=== PATIENT | male | born 1985 | race Caucasian/White ===

== ENCOUNTER 2018-06-18 09:58 | Emergency (ER) | payer OTHER ==
[2018-06-18] MEDS ORDERED: KETOROLAC 30 MG/ML 1 ML VIAL IM STA (09:59)
[2018-06-18] MEDS ORDERED: DIPH,PERTUS(ACELL)TETVAC-LF 0.5 ML VIAL IM ONE (09:59)
[2018-06-18 10:13] VITALS: RESP 16
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
[2018-06-18] MEDS ORDERED: MORPHINE SULFATE 4 MG/ML SYRINGE IVP STA (10:44)
--- NOTE | 2018-06-18 11:04 | XR ---
EXAMINATION TYPE: XR knee complete bilateral , 6 VIEWS DATE OF EXAM ORDERED: 06/18/2018 HISTORY: Pain. COMPARISON: None. FINDINGS: The joint spaces are well-maintained. No fracture, dislocation or joint effusion is seen. IMPRESSION: NO ACUTE OSSEOUS LESION.
--- NOTE | 2018-06-18 11:05 | XR ---
EXAMINATION TYPE: XR tibia fibula bilateral , 4 VIEWS DATE OF EXAM ORDERED: 06/18/2018 HISTORY: Pain. COMPARISON: None. FINDINGS: No fracture, dislocation or other acute osseous lesion is seen. IMPRESSION: NO ACUTE OSSEOUS LESION.
--- NOTE | 2018-06-18 11:06 | XR ---
EXAMINATION TYPE: XR foot complete LT , 3 VIEWS DATE OF EXAM ORDERED: 06/18/2018 HISTORY: Pain. COMPARISON: None. FINDINGS: No fracture, dislocation or ankle joint effusion is seen. There is a small plantar calcane al spur. IMPRESSION: NO ACUTE OSSEOUS LESION.
[2018-06-18] MEDS ORDERED: HYDROcodone/APAP 5-325MG 1 EACH TAB PO STA (12:05)
[2018-06-18 12:33] VITALS: BP 138/70; PULSE 78; TEMP 197.9
== END 2018-06-18 12:32 | disposition home or self-care (01) ==
LOC: EC 09:58
DX: S90.32XA Contusion of left foot, initial encounter (principal); S80.01XA Contusion of right knee, initial encounter; M43.26 Fusion of spine, lumbar region; Z23 Encounter for immunization; Z88.0 Allergy status to penicillin; Z98.890 Other specified postprocedural states; Z98.1 Arthrodesis status; W20.8XXA Other cause of strike by thrown, projected or falling object, initial encounter
CPT/HCPCS: 99284 ×2; 96374 ×2; 96372 ×2; 90471 ×2; 73562; 73590; 73630; 90715; J2270; J1885

== ENCOUNTER 2019-08-08 13:00 | Emergency (ER) | payer OTHER ==
[2019-08-08 14:41] LABS: Basophils % (A) 1 %; Eosinophils # (A) 0.3 k/uL (0-0.7); Eosinophils % (A) 3 %; HCT 46.4 % (39.0-53.0); Lymphocytes # (A) 2.1 k/uL (1.0-4.8); Lymphocytes % (A) 28 %; MCH 29.1 pg (25.0-35.0); MCHC 34.4 g/dL (31.0-37.0); MCV 84.7 fL (80.0-100.0); Mean Platelet Volume 7.9; Monocytes # (A) 0.5 k/uL (0-1.0); Monocytes % (A) 7 %; Neutrophils # (A) 4.6 k/uL (1.3-7.7); Neutrophils % (A) 60 %; Platelet Count 226 k/uL (150-450); RBC 5.48 m/uL (4.30-5.90); RDW 11.8 % (11.5-15.5); WBC 7.7 k/uL (3.8-10.6)
[2019-08-08 14:48] LABS: ALT 19 U/L (4-49); AST 24 U/L (17-59); African American GFR (CKD) >90 (>60 ml/min/1.73 sqM); Albumin 4.3 g/dL (3.5-5.0); Alkaline Phosphatase 81 U/L (38-126); Anion Gap 8 mmol/L; Blood Urea Nitrogen 20 mg/dL (9-20); Calcium 9.6 mg/dL (8.4-10.2); Carbon Dioxide 26 mmol/L (22-30); Chloride 106 mmol/L (98-107); Glucose 92 mg/dL (74-99); Non-African American GFR(CKD) >90 (>60 ml/min/1.73 sqM); Potassium 4.7 mmol/L (3.5-5.1); Sodium 140 mmol/L (137-145); Total Bilirubin 0.6 mg/dL (0.2-1.3); Total Protein 7.2 g/dL (6.3-8.2)
[2019-08-08 14:56] LABS: VBG PH 7.38 (7.31-7.41)
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
[2019-08-08 16:38] VITALS: BP 107/64; PULSE 72; RESP 18; TEMP 98.1
== END 2019-08-08 16:38 | disposition home or self-care (01) ==
LOC: EC 13:00
DX: T58.8X1A Toxic effect of carbon monoxide from other source, accidental (unintentional), initial encounter (principal); Z88.0 Allergy status to penicillin; Y99.0 Civilian activity done for income or pay
CPT/HCPCS: 36415; 80053; 82375; 82803; 83605; 84484; 85025; 93005; 99283

== ENCOUNTER 2019-10-28 00:51 | Emergency (ER) | payer OTHER ==
[2019-10-28] MEDS ORDERED: MORPHINE SULFATE 2 MG/ML SYRINGE IVP STA (01:42)
[2019-10-28] MEDS ORDERED: ONDANSETRON 4 MG/2 ML VIAL IVP STA (01:42)
[2019-10-28] MEDS ORDERED: SODIUM CHLORIDE 0.9% 1,000 ML IV ONE (01:42)
--- NOTE | 2019-10-28 03:16 | CT ---
EXAMINATION TYPE: CT brain cspine wo con DATE OF EXAM: 10/28/2019 COMPARISON: None HISTORY: ETOH Fall CT DLP: 1899.5 mGycm Automated exposure control for dose reduction was used. Headache. Neck pain. Multiple axial sections were obtained of the brain without contrast. Multiple axial sections were obt ained from the skull base to T1 vertebra without contrast. FINDINGS: Ventricles have normal size. There is no mass effect nor midline shift. There is no sign of intracran ial hemorrhage. Calvarium is intact. Cervical vertebra have normal alignment. Posterior elements are intact. Facet joints are intact. The skull base is intact. IMPRESSION: Negative CT scan of the brain. Negative CT scan of the cervical spine. No fracture.
[2019-10-28] MEDS ORDERED: KETOROLAC 30 MG/ML 1 ML VIAL IM STA (03:27)
[2019-10-28] MEDS ORDERED: ACETAMINOPHEN TAB 500 MG TAB PO STA (03:27)
[2019-10-28] MEDS ORDERED: KETOROLAC 30 MG/ML 1 ML VIAL IVP STA (03:34)
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
[2019-10-28 04:00] VITALS: BP 120/74; PULSE 70; RESP 18; TEMP 98
== END 2019-10-28 04:00 | disposition home or self-care (01) ==
LOC: EC 00:51
DX: S06.0X1A Concussion with loss of consciousness of 30 minutes or less, initial encounter (principal); F10.129 Alcohol abuse with intoxication, unspecified; Z88.0 Allergy status to penicillin; W22.01XA Walked into wall, initial encounter; Y93.89 Activity, other specified; Y92.009 Unspecified place in unspecified non-institutional (private) residence as the place of occurrence of the external cause
CPT/HCPCS: 70450; 72125; 96361; 96374; 96375; 99284

== ENCOUNTER 2022-07-17 05:55 | Emergency (ER) | payer BC, OTHER ==
--- NOTE | 2022-07-17 06:14 | ED ---
Neck Injury/Pain HPI - General Chief Complaint: Neck Pain/Injury Stated Complaint: neck pain, fall Time Seen by Provider: 07/17/22 06:01 Source: patient, family, RN notes reviewed Mode of arrival: ambulatory Limitations: no limitations - History of Present Illness Initial Comments: This is a 37-year-old male who presents to the emergency department for neck pain. States that he rolled out of bed and hit his head on the dresser, and when he fell his neck was bent and he was on his right side. Currently having pain to the neck with radiation down both arms. He did have a cervical fusion 2 years ago, which he states is his largest concern. He had 800 mg of ibuprofen prior to arrival, which he states offered little to no benefit, however he decli barry any other pain medication at this time. Also complains of pain to the right side of the lower back with radiation down the right leg, which also occurred after the fall. Also reports a history of lumbar fusions. Denies any saddle anesthesia or loss of bowel/bladder control. His put one of his old c- collars on prior to arrival. Denies any fevers, chills, sore throat, cough, dyspnea, chest pain, palpitations, abdominal pain, nausea, vomiting, diarrhea, or headaches. MD Complaint: neck pain, neck injury Place: home Context: fall Treatments Prior to Arrival: Ibuprofen, cervical collar - Related Data Previous Rx's Medication Instructions Recorded Ibuprofen [Motrin] 600 mg PO Q8HR PRN #24 tab 06/18/18 Cyclobenzaprine [Flexeril] 5 mg PO TID PRN #20 tablet 07/17/22 Ibuprofen 800 mg PO Q8H PRN #20 tab 07/17/22 Lidocaine 5% Patch [Lidoderm 5% 1 patch TOPICAL DAILY PRN #30 patch 07/17/22 Patch] Allergies Allergy/AdvReac Type Severity Reaction Status Date / Time Penicillins Allergy Unknown Verified 07/17/22 05:57 Review of Systems ROS Statement: Those systems with pertinent positive or pertinent negative responses have been documented in the HPI. ROS Other: All systems not noted in ROS Statement are negative. Past Medical History Additional Past Medical History / Comment(s): migraines History of Any Multi-Drug Resistant Organisms: None Reported Past Surgical History: Back Surgery, Orthopedic Surgery, Tonsillectomy Additional Past Surgical History / Comment(s): L4, L5, S1 fusion, oral surgery, rt knee surgery Past Psychological History: No Psychological Hx Reported Smoking Status: Never smoker Past Alcohol Use History: Occasional Past Drug Use History: None Reported General Exam Limitations: no limitations General appearance: alert, in no apparent distress Head exam: Present: atraumatic, normocephalic, normal inspection Eye exam: Present: normal appearance, PERRL, EOMI. Absent: scleral icterus, conjunctival injection, periorbital swelling Neck exam: Present: normal inspection. Absent: tenderness, meningismus, full ROM (secondary to pain) Respiratory exam: Present: normal lung sounds bilaterally. Absent: respiratory distress, wheezes, rales, rhonchi, stridor Cardiovascular Exam: Present: regular rate, normal rhythm, normal heart sounds. Absent: systolic murmur, diastolic murmur, rubs, gallop, clicks Back exam: Present: normal inspection, tenderness (The right side of the lumbar spine at around L3 to L4). Absent: full ROM (secondary to pain) Neurological exam: Present: alert, oriented X3, CN II-XII intact Psychiatric exam: Present: normal affect, normal mood Skin exam: Present: warm, dry, intact, normal color. Absent: rash Course Vital Signs 07/17/22 07/17/22 05:58 06:25 Temperature 97.8 F 98.6 F Pulse Rate 75 80 Respiratory 18 16 Rate Blood Pressure 120/78 117/77 O2 Sat by Pulse 96 99 Oximetry Medical Decision Making - Medical Decision Making This is a 37-year-old male who presents to the emergency department for neck pain. Computed tomography scan of the cervical spine and x-ray of the lumbar spine were obtained. On his computed tomography scan of the cervical spine, I do identify his prior cervical fusions without evidence of acute fractures. On the x-ray of the lumbar spine I can identify his prior lumbar fusions and m ultilevel degenerative changes, however I identify no new acute fractures. Prescription for ibuprofen and Flexeril were provided. Advised to alternate with ibuprofen and Tylenol for pain relief. Reminded him that the Flexeril can be sedating and he should avoid driving or operating machinery when taking this. He was also given a prescription for lidocaine patches. Advise he alternate with ice and heat to help with the swelling and inflammation. He will follow up with his primary care provider this week to reevaluate his symptoms. Return precautions reviewed in depth, the patient is instructed to return to the emergency department with any new, worsening, or concerning symptoms, especially saddle anesthesia or loss or bowel/bladder control. Patient verbalized unders tanding. This case was discussed in detail with the attending ED physician. Presentation, findings, and treatment plan discussed in detail as well. - Radiology Data Radiology results: report reviewed, image reviewed Disposition Clinical Impression: Neck pain, Lower back pain, Fall Disposition: HOME SELF-CARE Instructions (If sedation given, give patient instructions): Cervical Sprain (ED), Back Pain (ED), Neck Pain (ED) Additional Instructions: Return to the emergency department with any new, worsening, or concerning symptoms. Alternate with ibuprofen and Tylenol as needed for pain relief. You can take the Flexeril as 1-2 tablets up to 3 times daily, be aware that this can be sedating and you should avoid driving or operating machinery when taking this. You were given starter packs for both ibuprofen and Flexeril in the event you cannot get to the pharmacy right away. You can also alternate with ice and heat to help with the pain and reduce inflammation. You can apply the lidocaine patches to both the neck and lower back once daily for additional relief. Follow up with your primary care provider in 1-2 days. Prescriptions: Cyclobenzaprine [Flexeril] 5 mg PO TID PRN #20 tablet PRN Reason: Pain Ibuprofen 800 mg PO Q8H PRN #20 tab PRN Reason: Pain Lidocaine 5% Patch [Lidoderm 5% Patch] 1 patch TOPICAL DAILY PRN #30 patch PRN Reason: Pain Is patient prescribed a controlled substance at d/c from ED?: No Referrals: Oscar Fatima MD [Primary Care Provider] - 1-2 days
[2022-07-17 06:27] VITALS: TEMP 98.6
--- NOTE | 2022-07-17 07:08 | CT ---
EXAMINATION TYPE: CT cervical spine wo con DATE OF EXAM: 07/17/2022 COMPARISON: None HISTORY: neck pain, fell out of bed. CT DLP: 948 mGycm Automated exposure control for dose reduction was used. TECHNIQUE: CT scan of the cervical spine is obtained without contrast, axial images are obtained, sa gittal and coronal reformatted images are also reviewed. FINDINGS: There is anterior and interdisc fusion at the C6-7 level. The craniovertebral junction relationships and prevertebral soft tissues are normal. The cervical ali gnment is normal there is minimal degenerative disc disease from C2 through C6. The cervical vertebral segments are normal in height. There is no fracture. The bony cervical canal and neuroforamina are widely patent. The facet joints and uncovertebral joints are intact. Paraspinal soft tissues are unremarkable. IMPRESSION: 1. Postsurgical changes at C6-7 as described. 2. No evidence of acute trauma to the cervical spine.
--- NOTE | 2022-07-17 07:10 | XR ---
Lumbar spine. HISTORY: Pain following fall. COMPARISON: None. TECHNIQUE: 3 views lumbar spine were obtained. FINDINGS: There are postsurgical changes of posterior metallic fusion from L3 through L5. There is intradiscal fusion at the L3-4 level or gas the lumbar vertebral segments are normal in height and alignment and there is no fracture or subluxation. The sacrum and SI joints appear normal. The disc spaces well-maintained. IMPRESSION: 1. Postsurgical changes from L3 through L5. 2. No evidence of acute trauma.
[2022-07-17] MEDS ORDERED: IBUPROFEN 600 MG STARTER PACK 4 TAB BTL PO STA (07:21)
[2022-07-17] MEDS ORDERED: CYCLOBENZAPRINE 10MG STARTER 3 TAB BTL PO STA (07:21)
[2022-07-17 07:38] VITALS: BP 124/76; PULSE 78; RESP 18
== END 2022-07-17 07:36 | disposition home or self-care (01) ==
LOC: EC 05:55
DX: M54.2 Cervicalgia (principal); M54.50 Low back pain, unspecified; Z88.0 Allergy status to penicillin; W18.09XA Striking against other object with subsequent fall, initial encounter
CPT/HCPCS: 72100; 72125; 99284

== ENCOUNTER 2023-08-29 10:13 | Emergency (ER) | payer BC ==
[2023-08-29] MEDS ORDERED: MORPHINE SULFATE 4 MG/ML SYRINGE IVP STA (10:36)
[2023-08-29] MEDS ORDERED: diphenhydrAMINE 50 MG/ML 1 ML VIAL IVP STA (10:36)
[2023-08-29] MEDS ORDERED: METOCLOPRAMIDE 5 MG/ML 2 ML VIAL IVP STA (10:36)
--- NOTE | 2023-08-29 10:43 | ED ---
General Adult HPI - General Chief complaint: Head Injury Stated complaint: headache-head injury Time Seen by Provider: 08/29/23 10:27 Source: patient, RN notes reviewed, old records reviewed Mode of arrival: ambulatory Limitations: no limitations - History of Present Illness Initial comments: Patient is a 38-year-old male who presents emergency Department complaining of headache following a head injury one week ago. Patient has a history of concussions. Has been dealing with worsening headaches over the last couple days after hitting his head on a chicken coop one week ago. States he hit the top of his head on a chicken coop. Did not lose consciousness. Is not on blood thinners. However since that time has been having his intermittent migraines that physical squeezing sensation over his head as well as intermittent nausea. Sensitivity lights and sounds. States has been worse over the last few days and therefore is concerned as he has had concussions the past but usually they resolve by this time. Presents for further evaluation. His no other acute complaints or injuries didn't complaining of some cervical spine pain. Does have a history of cervical spine fusion per patient. No focal pain. Just generalized pain. - Related Data Home Medications Medication Instructions Recorded Confirmed Ibuprofen [Advil] 800 mg PO Q8HR PRN 08/29/23 08/29/23 Previous Rx's Medication Instructions Recorded Cyclobenzaprine [Flexeril] 5 mg PO BID PRN 5 Days #10 tablet 08/29/23 Allergies Allergy/AdvReac Type Severity Reaction Status Date / Time Penicillins Allergy Rash/Hives Verified 08/29/23 11:40 prednisone AdvReac heart Verified 08/29/23 11:40 racing/cold sweats Review of Systems ROS Statement: Those systems with pertinent positive or pertinent negative responses have been documented in the HPI. Review of Systems: CONST: Denies fever EYES: Denies blurry vision ENT: Denies nasal congestion C/V: Denies Chest pain RESP: Denies shortness of breath GI: Denies abdominal pain : Denies dysuria SKIN: Denies rash. MSK: Denies joint pain. NEURO: Endorses headache ROS Other: All systems not noted in ROS Statement are negative. Past Medical History Additional Past Medical History / Comment(s): migraines, concussions. History of Any Multi-Drug Resistant Organisms: None Reported Past Surgical History: Back Surgery, Orthopedic Surgery, Tonsillectomy Additional Past Surgical History / Comment(s): L4, L5, S1 fusion, oral surgery, rt knee surgery Past Psychological History: No Psychological Hx Reported Smoking Status: Never smoker Past Alcohol Use History: Occasional Past Drug Use History: None Reported General Exam - General Exam Comments Initial Comments: General: Appears in mild distress secondary to headache. HEAD: Normal with no signs of head trauma. Negative devine sign. Negative raccoon eyes. EYES: PERRLA, EOMI, conjunctiva normal, no discharge. Pupils are 3 mm equal bilaterally. ENT: Hearing grossly intact, normal oropharynx. RESPIRATORY: Clear breath sounds bilaterally. No wheezes, rales, or rhonchi. C/V: Regular rate and rhythm. S1 and S2 auscultated, no edema, peripheral pulses 2+ and intact throughout ABD: Abd is soft, nontender, nondistended EXT: Normal range of motion, no obvious deformity SKIN: No rashes or lesions observed on exposed skin. NEURO: Alert and oriented x 4. Cranial nerves II-XII intact. No focal sensory or strength deficits. Able to ambulate without issues. GCS of 15. NIH is 0. Normal cerebellar function as evident by normal finger to nose testing. Limitations: no limitations Course Vital Signs 08/29/23 08/29/23 08/29/23 10:20 10:24 12:15 Temperature 98.9 F Pulse Rate 78 75 70 Respiratory 16 16 20 Rate Blood Pressure 147/84 148/68 111/76 O2 Sat by Pulse 96 98 98 Oximetry 08/29/23 13:50 Temperature Pulse Rate 78 Respiratory 16 Rate Blood Pressure 145/68 O2 Sat by Pulse 98 Oximetry Medical Decision Making - Medical Decision Making Was pt. sent in by a medical professional or institution (, PA, TIPPLE WORKER, urgent care, hospital, or shelter...) When possible be specific @ -No Did you speak to anyone other than the patient for history (EMS, parent, family, police, friend...)? What history was obtained from this source @ -No Did you review nursing and triage notes (agree or disagree)? Why? @ -I reviewed and agree with nursing and triage notes Were old charts reviewed (outside hosp., previous admission, EMS record, old EKG, old radiological studies, urgent care reports/EKG's, shelter records)? Report findings @ -No old charts were reviewed Differential Diagnosis (chest pain, altered mental status, abdominal pain women, abdominal pain men, vaginal bleeding, weakness, fever, dyspnea, syncope, he adache, dizziness, GI bleed, back pain, seizure, CVA, palpatations, mental health, musculoskeletal)? @ -Headache, cervical spine injury, migraine, intracranial injury, migraine. This list is not all inclusive. EKG interpreted by me (3pts min.). @ -None done X-rays interpreted by me (1pt min.). @ -None done CT interpreted by me (1pt min.). @ -CT brain, C-spine negative for any obvious traumatic injury. No acute intracranial process. U/S interpreted by me (1pt. min.). @ -None done What testing was considered but not performed or refused? (CT, X-rays, U/S, labs)? Why? @ -None What meds were considered but not given or refused? Why? @ -None Did you discuss the management of the patient with other professionals (professionals i.e. , PA, TIPPLE WORKER, lab, RT, psych nurse, social media senior associate, body liner, teacher, correction officer city or county jail, director of casework services)? Give summary @ -No Was smoking cessation discussed for >3mins.? @ -No Was critical care preformed (if so, how long)? @ -No Were there social determinants of health that impacted care today? How? (Homelessness, low income, unemployed, alcoholism, drug addiction, transportation, low edu. Level, literacy, decrease access to med. care, senior care, rehab)? @ -No Was there de-escalation of care discussed even if they declined (Discuss DNR or withdrawal of care, Hospice)? DNR status @ -No What co-morbidities impacted this encounter? (DM, HTN, Smoking, COPD, CAD, Cancer, CVA, ARF, Chemo, Hep., AIDS, mental health diagnosis, sleep apnea, morbid obesity)? @ -None Was patient admitted / discharged? Hospital course, mention meds given and route, prescriptions, significant lab abnormalities, going to OR and other pertinent info. @ -Based on the patient's presentation and physical exam, presents with 1 week of concussion-like symptoms after head trauma. Was not evaluated prior to this. I did recommend CT of the brain as well as C-spine. Patient was in agreement this plan. Vital signs are within acceptable limits. He'll be sent likely treated with IV fluids, Reglan, Benadryl. He will also be given IV morphine. We'll hold IV Toradol at this time. Neuro exam unremarkable. Patient's imaging negative for any obvious traumatic injury. I discussed the workup with the patient. Patient's still having a mild headache, however we will provide the patient with additional analgesics medications. Patient was in agreement this plan. On reevaluation, patient is feeling improved and would like to go home. We discussed his workup. Likely has a concussion. Strict return precautions discussed. I will provide the patient with a prescription for Flexeril. I instructed the patient to follow up with their PCP in the next 1-3 days. I explained that the patient should return to the emergency department if they experience any worsening symptoms. Strict return precautions were discussed with the patient. The patient expressed understanding of these instructions. I answered all questions that the patient had. The patient was discharged home in good condition with their prescriptions and follow up information. Undiagnosed new problem with uncertain prognosis? @ -No Drug Therapy requiring intensive monitoring for toxicity (Heparin, Nitro, Insulin, Cardizem)? @ -No Were any procedures done? @ -No Diagnosis/symptom? @ -Concussion, migraine headache Acute, or Chronic, or Acute on Chronic? @ -Acute Uncomplicated (without systemic symptoms) or Complicated (systemic symptoms)? @ -Uncomplicated Side effects of treatment? @ -none Exacerbation, Progression, or Severe Exacerbation] @ -no Poses a threat to life or bodily function? @ -no Disposition Clinical Impression: Migraine, Concussion Disposition: HOME SELF-CARE Condition: Good Instructions (If sedation given, give patient instructions): Concussion (ED) Prescriptions: Cyclobenzaprine [Flexeril] 5 mg PO BID PRN 5 Days #10 tablet PRN Reason: Pain Is patient prescribed a controlled substance at d/c from ED?: No Referrals: Oscar Fatima MD [Primary Care Provider] - 1-2 days Time of Disposition: 13:24
[2023-08-29] MEDS: SODIUM CHLORIDE 0.9% 1,000 ML IV STA ×2 (11:06→12:57)
[2023-08-29 11:07] VITALS: TEMP 98.9
--- NOTE | 2023-08-29 12:22 | CT ---
EXAMINATION TYPE: CT brain cspine wo con CT DLP: 2022 mGycm, Automated exposure control for dose reduction was used. DATE OF EXAM: 08/29/2023 11:37 AM COMPARISON: CT head C-spine 07/17/2022 CLINICAL INDICATION:Male, 38 years old with history of pain; Hit head on chicken coop one week ago. R /o Concussion; hx of C-spine Fusion TECHNIQUE: Brain: Multiple axial CT images of the brain were obtained without IV contrast. Cspine: Axial CT images from the skull base to the inferior aspect of T2 we obtained without intraven ous contrast. Coronal and sagittal reformatted images were also reviewed. FINDINGS: Brain: Extra-axial spaces: No abnormal extra-axial fluid collections. Plaque-like calcification of the anter ior falx. Ventricular system: Within normal limits. Cerebral parenchyma: No increased attenuation to suggest acute intraparenchymal hemorrhage. The gra y-white matter interface appears maintained. No significant atrophy. White matter unremarkable by C T. Cerebellum: No acute abnormality. Mass effect: No evidence of mass effect or midline shift. Intracranial vasculature: Unremarkable Soft tissues: Normal. Visualized orbits: Orbital contents appear grossly intact. Calvarium/osseous structures: No evidence of calvarial fracture. Paranasal sinuses and mastoid air cells: Clear MRI is more sensitive for detecting acute processes such as infarct, and may be considered if clinica lly warranted. Cervical spine: Fracture: None seen. Osseous structures, spinal canal/neural foramina: Redemonstration ACDF changes C6-C7. Hardware appear s intact and unchanged. No critical osseous stenosis of the cervical canal. Vertebral alignment: No traumatic malalignment. Unchanged appearance of straightening of the normal c ervical lordosis. Neck soft tissues: No acute finding.. Other: Lung apices show no acute infiltrate or pneumothorax. IMPRESSION: CT head: 1. No acute intracranial CT abnormality. 2. No significant change from the prior exam. CT cervical spine: 1. No evidence of cervical spine fracture or traumatic malalignment. 2. Status post ACDF C6-C7. 3. No significant change from the prior exam.
[2023-08-29] MEDS ORDERED: MAGNESIUM SULFATE-D5W PMX 1 GM in DEXTROSE/WATER 1 100ML.BAG IVPB ONE (12:40)
[2023-08-29] MEDS ORDERED: SODIUM CHLORIDE 0.9% 500 ML 500 ML IV STA (12:40)
[2023-08-29] MEDS ORDERED: KETOROLAC 15 MG/ML 1 ML VIAL IVP STA (12:40)
[2023-08-29 13:57] VITALS: BP 145/68; PULSE 78; RESP 16
== END 2023-08-29 13:51 | disposition home or self-care (01) ==
LOC: EC 10:13
DX: S06.0X0A Concussion without loss of consciousness, initial encounter (principal); G43.909 Migraine, unspecified, not intractable, without status migrainosus; Z88.0 Allergy status to penicillin; Z88.8 Allergy status to other drugs, medicaments and biological substances; W22.8XXA Striking against or struck by other objects, initial encounter
CPT/HCPCS: 72125; 70450; 99284; 96365; 96375 ×4; 96361; J2270; J1200; J2765; J3475; J1885